=== PATIENT | female | born 1960 | race Caucasian/White ===

== ENCOUNTER 2017-07-18 11:41 | Emergency (ER) | payer OTHER ==
[~2017-07-18] VITALS: Ht 172.7 cm; Wt 60.3 kg
[2017-07-18] MEDS ORDERED: SODIUM CHLORIDE 0.9% 1,000ML IVBOLUS ONE (12:00)
[2017-07-18] MEDS ORDERED: PLEASE ENTER ALLERGIES MC SCH (12:00)
[2017-07-18] MEDS ORDERED: ONDANSETRON 2MG/ML, 2ML IVPush ONE (12:00)
[2017-07-18] MEDS ORDERED: MORPHINE SULFATE 4 MG/ML, 1ML IVPush PRN (12:00)
[2017-07-18] MEDS ORDERED: ONDANSETRON 2MG/ML, 2ML ONE (12:48)
[2017-07-18 13:02] LABS: BASOPHILS # (AUTO) 0.01 x10^3/uL (0-0.1); BASOPHILS % (AUTO) 0 % (0-1); EOSINOPHILS % (AUTO) 0 % (1-7); LYMPHOCYTES # (AUTO) 0.59 x10^3/uL (1-3.4); LYMPHOCYTES % (AUTO) 13 % (22-44); MD NO; MEAN CORPUSCULAR HEMOGLOBIN 31.7 pg (27.0-34.8); MEAN CORPUSCULAR HGB CONC 33.9 g/dL (32.4-35.8); MEAN CORPUSCULAR VOLUME 93.6 fL (80-100); MEAN PLATELET VOLUME 8.2 fL (7.4-10.4); MONOCYTES # (AUTO) 0.49 x10^3/uL (0.2-0.8); MONOCYTES % (AUTO) 11 % (2-9); NEUTROPHILS # (AUTO) 3.54 x10^3/uL (1.8-6.8); NEUTROPHILS % (AUTO) 76 % (42-75); PLATELET COUNT 234 x10^3/uL (130-400); RED BLOOD COUNT 4.83 x10^6/uL (3.82-5.3); RED CELL DISTRIBUTION WIDTH 12.2 % (9.6-15.2)
[2017-07-18 13:09] LABS: MICROSCOPIC INDICATED
[2017-07-18 13:14] LABS: ALANINE AMINOTRANSFERASE 28 U/L (12-78); ALBUMIN 3.9 g/dL (3.4-5.0); ANION GAP 10 mmol/L (5-15); CALCIUM 8.6 mg/dL (8.5-10.1); CHLORIDE 105 mmol/L (98-107); CREATININE 0.64 mg/dL (0.55-1.02)
[2017-07-18 13:17] LABS: ALKALINE PHOSPHATASE 82 U/L (45-117); BILIRUBIN,TOTAL 0.3 mg/dL (0.2-1.0); TOTAL PROTEIN 7.4 g/dL (6.4-8.2)
[2017-07-18 13:26] LABS: CULTURE INDICATED? YES
[2017-07-18] MEDS ORDERED: HYDROmorphone 1 MG/ML, 1ML IV ONE (13:30)
[2017-07-18] MEDS ORDERED: THYR60TA PO (13:51)
[2017-07-18] MEDS ORDERED: ESTRADIOL TP (13:51)
[2017-07-18] MEDS ORDERED: LORA1TAB PO (13:51)
[2017-07-18] MEDS ORDERED: PROG100C16 PO (13:51)
[2017-07-18] MEDS ORDERED: NITAZOXANIDE PO-COUM (13:52)
[2017-07-18] MEDS ORDERED: DICYCLOMINE 10 MG/ML, 2ML IM ONE (14:00)
[2017-07-18] MEDS ORDERED: DICYCLOMINE 10 MG/ML, 2ML ONE (14:21)
[2017-07-18 15:30] VITALS: BP 107/51
== END 2017-07-18 15:49 | disposition home or self-care (01) ==
LOC: ED 15:40
DX: A09 Infectious gastroenteritis and colitis, unspecified (principal)
CPT/HCPCS: 36415; 80053; 81001; 83690; 85025; 87040; 87086; 96361; 96372; 96374; 99285; J0500; J2405; J7030